=== PATIENT | female | born 1965 | race Caucasian/White ===

== ENCOUNTER 2016-08-24 20:47 | Emergency (ER) | payer MEDICAID ==
[~2016-08-24] VITALS: Ht 154.9 cm; Wt 68.5 kg
[2016-08-24 20:47] VITALS: BP_SYST 109
[2016-08-24 22:09] VITALS: BP_SYST 107
== END 2016-08-24 22:09 | disposition home or self-care (01) ==
LOC: SED 20:47
DX: J02.9 Acute pharyngitis, unspecified (principal); R51 Headache; Z88.2 Allergy status to sulfonamides
CPT/HCPCS: 99283

== ENCOUNTER 2017-02-02 22:23 | Emergency (ER) | payer MEDICAID ==
[~2017-02-02] VITALS: Ht 154.9 cm; Wt 70.3 kg
[2017-02-02 22:30] VITALS: BP_SYST 120
[2017-02-02 23:43] VITALS: BP_SYST 127
== END 2017-02-02 23:43 | disposition home or self-care (01) ==
LOC: SED 22:23
DX: J06.9 Acute upper respiratory infection, unspecified (principal); Z88.2 Allergy status to sulfonamides
CPT/HCPCS: 71010; 81025; 99283

== ENCOUNTER 2017-02-16 21:15 | Emergency (ER) | payer MEDICAID ==
[~2017-02-16] VITALS: Ht 154.9 cm; Wt 70.3 kg
[2017-02-16 21:30] VITALS: BP_SYST 114
[2017-02-16] MEDS ORDERED: DIPH-TET-PERTUS Vaccine 0.5 ML VIAL (ADACEL) IM ONE (22:15)
== END 2017-02-16 22:40 | disposition home or self-care (01) ==
LOC: SED 21:15
DX: S61.012A Laceration without foreign body of left thumb without damage to nail, initial encounter (principal); Z88.2 Allergy status to sulfonamides; Z87.01 Personal history of pneumonia (recurrent); W26.0XXA Contact with knife, initial encounter; Y93.89 Activity, other specified; Y92.89 Other specified places as the place of occurrence of the external cause; Y99.8 Other external cause status
CPT/HCPCS: 90715; 99283